=== PATIENT | female | born 1980 | race Caucasian/White ===

== ENCOUNTER → 2017-12-25 | Day surgery (SDC) | payer BC ==
[~2017-12-25] MED LIST: Lactated Ringers 1,000 ML IV SCH; Propofol 200 MG/20 ML SDV IV ONE
[2017-12-25 13:45] VITALS: BP 116/61
--- NOTE | 2017-12-25 14:24 | OR ---
DATE OF OPERATION: 12/25/2017 PREOPERATIVE DIAGNOSIS: GASTROESOPHAGEAL REFLUX DISEASE. POSTOPERATIVE DIAGNOSIS: GASTROESOPHAGEAL REFLUX DISEASE. SURGEON: Tadeo Pierce MD PROCEDURE: EGD WITH SAWYER, DUODENAL BIOPSY X1. ANESTHESIA: BATTERY TESTER FIELD due to GERD. COMPLICATIONS: None. SPECIMEN: 1. Duodenal biopsy x1. 2. SAWYER. FINDINGS: Essentially normal full-length EGD. RECOMMENDATIONS: Medical followup with Dr. Frias, consideration for gallbladder evaluation if has yet to be done. INDICATIONS: The patient has apparently been having some ongoing issues with abdominal pain and reflux. Dr. Frias sent her for EGD. DESCRIPTION OF PROCEDURE: The patient was prepped and draped, placed in the left lateral decubitus position. A lubricated Olympus gastroscope was inserted over a bit and advanced to cricopharyngeus area and easily intubated in the esophagus. The esophageal lining was benign in its entire course. The Z-line was crisp and sharp around 38 cm. No significant hernia seen. No spontaneous reflux visualized. There was no distal esophagitis, stricturing, ulceration, or Sharp's changes. The scope was intubated into the stomach through the pylorus into the second portion of the duodenum. This and the duodenal bulb appeared benign. A biopsy for celiac evaluation was accomplished. The scope was brought back into the stomach and retroflexed. The upper fundus and cardia appeared benign. No hiatal hernia seen. Upon straightening, the rest of the stomach including the entire fundus and antrum was evaluated thoroughly. No lesions, polyps, masses, ulcerations, or signs of peptic ulcer disease seen. A SAWYER test was obtained. Air was suctioned. The scope was removed without complication. KIKI/JOVANY /[id number]
== END ==
LOC: CC.SDS 11:45
PROVIDERS: ATTEND Family Medicine
DX: K21.9 Gastro-esophageal reflux disease without esophagitis (principal); R10.9 Unspecified abdominal pain; E78.5 Hyperlipidemia, unspecified; E03.9 Hypothyroidism, unspecified; Z87.891 Personal history of nicotine dependence; Z79.899 Other long term (current) drug therapy
CPT/HCPCS: 87081; J2704; J7120

== ENCOUNTER 2022-02-05 15:07 | Emergency (ER) | payer BC ==
[2022-02-05] MEDS ORDERED: Sodium Chloride 0.9% 10 ML Syringe FLUSH PRN (15:20)
[2022-02-05] MEDS: Alum Hydrox/Mag Hydrox/Simeth 30 ML, Lidocaine 2% 15 ML PO ONE ×2 (15:33)
[2022-02-05 15:35] VITALS: BP 115/86; PULSE 80
[2022-02-05] MEDS: Pantoprazole 40 MG Vial IVPUSH SCH (15:54)
[2022-02-05] MEDS: fentaNYL 50 MCG/ML SDV IVPUSH ONE (16:06)
[2022-02-05] MEDS: Iopamidol 755 Mg/ML 100 ML Bottle IVPUSH ONE (16:12)
[2022-02-05] MEDS: Metoclopramide 10 MG/2 ML SDV IVPUSH ONE (16:30)
== END 2022-02-05 18:25 | disposition home or self-care (01) ==
LOC: CC.ED 15:07
DX: K29.70 Gastritis, unspecified, without bleeding (principal); Z91.018 Allergy to other foods
CPT/HCPCS: 36415; 74177; 80053; 83690; 83735; 84484; 85025; 93005; 96374; 96375; 99284-25; A9270-GY; C9113; J2765; J3010; Q9967